=== PATIENT | male | born 1930 | race Hispanic/Latino ===

== ENCOUNTER 2017-10-13 08:44 | Observation (INO) | payer MEDICARE, OTHER ==
[2017-10-13 08:49] VITALS: BMI 25.8
[2017-10-13] MEDS ORDERED: Sodium Chloride 0.9% 1,000 ML IV STA (09:24)
[2017-10-13] MEDS ORDERED: Morphine 2 mg/ml ISec IVP STA (09:24)
[2017-10-13] MEDS ORDERED: Iohexol 240 (50 ml) ONE (09:29)
[2017-10-13 10:03] LABS: VENOUS BLOOD GAS BASE EXCESS -0.2 mmol/L (0.0-2.0); VENOUS BLOOD GAS PO2 35 mm/Hg (30-55); VENOUS BLOOD PH 7.33 (7.32-7.43)
[2017-10-13 10:06] LABS: BASO # 0.01 K/mm3 (0.0-2.0); BASO % 0.1 % (0.0-3.0); EOS % 0.2 % (1.5-5.0); GRAN # 11.01 (1.4-6.5); GRAN % 88.1 % (50.0-68.0); HEMOGLOBIN 13.8 g/dL (14.0-18.0); LYMPH # 0.7 (1.2-3.4); LYMPH % 5.4 % (22.0-35.0); MEAN CELL VOLUME 89.8 fl (80.0-105.0); MEAN CORPUSCULAR HEMOGLOBIN 30.6 pg (25.0-35.0); MEAN CORPUSCULAR HGB CONC 34.1 g/dl (31.0-37.0); MEAN PLATELET VOLUME 11.4 fl (7.0-11.0); MONO # 0.8 (0.1-0.6); MONO % 6.2 % (1.0-6.0); PH,URINE 6.5 (4.7-8.0); RBC 4.51 10^6/uL (3.5-6.1); RED CELL DISTRIBUTION WIDTH 14.3 % (11.5-14.5); URINE BILIRUBIN NEGATIVE (NEGATIVE); URINE BLOOD NEGATIVE (NEGATIVE); URINE GLUCOSE (UA) NEGATIVE (NEGATIVE); URINE LEUKOCYTE ESTERASE NEGATIVE Leu/uL (NEGATIVE); URINE PROTEIN NEGATIVE mg/dL (<30 mg/dL); URINE UROBILINOGEN 0.2 E.U./dL (<1 E.U./dL); WHITE BLOOD COUNT 12.5 10^3/ul (4.5-11.0)
[2017-10-13 10:07] LABS: URINE APPEARANCE CLEAR (CLEAR); URINE COLOR YELLOW (YELLOW)
--- NOTE | 2017-10-13 10:12 | ED PDOC ---
Arrival/HPI - General Chief Complaint: Abdominal Pain Time Seen by Provider: 10/13/17 09:22 Historian: Patient, Spouse - History of Present Illness Narrative History of Present Illness (Text): 10/13/17 10:09 87 yo male come in accompanied by for evaluation of gradual onset of RLQ pain since today AM. Pt sts, "woke up this AM with some chills, nauseous, dry heaves, went to bathroom and after that fell severe RLQ pain". Pt reports, since then, pain is constant, localized over RLQ, non-radiating, 09/28. Pt denies fever, recent travel or known sick contact. dizziness, CP, SOB, dyspnea, palpitation, denies vomiting, hematemesis, diarrhea, melena, denies hx of constipation, UTI sx. At the time of evaluation, appears comfortable, not in any apparent distress. Past Medical History - Provider Review Nursing Documentation Reviewed: Yes - Travel History Have you recently traveled outside [place] w/in the past 3 mons?: No - Infectious Disease Hx of Infectious Diseases: None - Tetanus Immunization Tetanus Immunization: Unknown - Cardiac Hx Cardiac Disorders: Yes (triple bypass 1991) Hx Hypertension: Yes - Pulmonary Hx Respiratory Disorders: No - Neurological Hx Neurological Disorder: No - HEENT Hx HEENT Disorder: No Hx Glaucoma: Yes - Renal Hx Renal Disorder: No - Endocrine/Metabolic Hx Endocrine Disorders: No - Hematological/Oncological Hx Cancer: Yes (bladder ca over 10 yrs ago) - Integumentary Hx Dermatological Disorder: No - Musculoskeletal/Rheumatological Hx Arthritis: Yes Hx Falls: No - Gastrointestinal Hx Gastrointestinal Disorders: Yes (right groin hernia) Hx Colitis: Yes Hx Gastrointestinal Ulcer: Yes - Genitourinary/Gynecological Hx Bladder Cancer: Yes - Psychiatric Hx Psychophysiologic Disorder: No Hx Substance Use: No - Surgical History Hx Cardiac Catheterization: Yes Hx Cholecystectomy: Yes Hx Coronary Stent: Yes (x4 2003) Hx Open Heart Surgery: Yes (triple bypass) Other/Comment: BLADDER - Anesthesia Hx Anesthesia: Yes Hx Anesthesia Reactions: No Hx Malignant Hyperthermia: No - Suicidal Assessment Feels Threatened In Home Enviroment: No Family/Social History - Physician Review Nursing Documentation Reviewed: Yes Family/Social History: No Known Family HX Smoking Status: Never Smoked Hx Alcohol Use: Yes Hx Substance Use: No Hx Substance Use Treatment: No Allergies/Home Meds Allergies/Adverse Reactions: Allergies iv contrast Allergy (Uncoded 10/13/17 09:16) RASH tyelenol Allergy (Uncoded 10/13/17 09:16) RASH Home Medications: Home Meds Medication Instructions Recorded Confirmed Atorvastatin [Lipitor] 40 mg PO DAILY 01/12/12 10/13/17 Clopidogrel [Plavix] 75 mg PO DAILY 01/12/12 10/13/17 Ramipril [Altace] 10 mg PO BID 01/12/12 10/13/17 Timolol 0.5% Ophth [Timoptic 0.5% 2 drop OP DAILY 01/12/12 10/13/17 Ophth Soln] Aspirin [Aspirin EC] 325 mg PO DAILY 10/13/17 10/13/17 [id number] CD [Cardizem CD] 300 mg PO DAILY 10/13/17 10/13/17 Review of Systems - Review of Systems Constitutional: Normal, Fevers Eyes: Normal ENT: Normal Respiratory: Normal. absent: SOB, Cough, Sputum Cardiovascular: Normal Gastrointestinal: Abdominal Pain, Nausea. absent: Constipation, Diarrhea, Hematochezia, Hematemesis, Food Intolerance Genitourinary Male: Normal Musculoskeletal: Normal Skin: Normal. absent: Rash Neurological: Normal Endocrine: Normal Hemo/Lymphatic: Normal Psychiatric: Normal Physical Exam Vital Signs Temp Pulse Resp BP Pulse Ox 10/13/17 11:00 70 17 149/70 98 10/13/17 08:57 98.0 F 78 17 154/69 H 98 Temperature: Afebrile Blood Pressure: Hypertensive Pulse: Regular Respiratory Rate: Normal Appearance: Positive for: Well-Appearing, Non-Toxic, Comfortable Pain Distress: Mild Mental Status: Positive for: Alert and Oriented X 3 - Systems Exam Head: Present: Normocephalic Conjunctiva: Present: Normal Mouth: Present: Moist Mucous Membranes, Normal Lips. No: Drooling Pharnyx: No: ERYTHEMA Neck: Present: Trachea Midline. No: JVD, Bruit Respiratory/Chest: Present: Clear to Auscultation, Good Air Exchange. No: Respiratory Distress, Accessory Muscle Use Cardiovascular: Present: Regular Rate and Rhythm, Normal S1, S2. No: Murmurs Abdomen: Present: Tenderness (mod RLQ). No: Distention, Peritoneal Signs, Rebound, Guarding Upper Extremity: Present: Normal ROM Lower Extremity: Present: Normal ROM. No: Edema, CALF TENDERNESS, Swelling, Deformity Neurological: Present: GCS=15, Speech Normal Skin: Present: Warm, Dry, Normal Color. No: Rashes Psychiatric: Present: Alert, Oriented x 3 Medical Decision Making ED Course and Treatment: 10/13/17 11:50 Ptw as OBS in ED for 3 hours and remained stable. On re-evaluation, pt remained significantly unchanged. Afebriler, hemodynamicalys table. non-toxic, tolerate Po well in ED. neck: Supple Lungs: C TA B/L, BS equal B/L. CVS: (+)S1S2, reg. Abd: mild RLQ tenderness, (-) guarding, (-) rebound. Blood work review, mild leukocytosis with left shift noted. Lactic acid- negative, no evidence of sepsis. Chemistry- baseline, no acute abnormalities. UA- normal study. CT abd/pelvis review and c/w ascending colitis case discussed with ( pts GI), last colonoscopy 5-6 yrs ago, recommend admission r/o ischemic cause of colitis. case discussed with pt's PMD , admission to recommend. was notified about admission. results review and discussed with pt, agrees with plan. - Lab Interpretations Lab Results: 10/13/17 09:30 10/13/17 09:30 Lab Results 10/13/17 09:30: Sodium 139, Chloride 102, Potassium 4.4, Carbon Dioxide 25, Anion Gap 16, BUN 22 H, Creatinine 1.4, Est GFR ( Amer) 58, Est GFR (Non- Af Amer) 48, Random Glucose 134 H, Calcium 9.2, Total Bilirubin 1.0, AST 41, ALT 51, Alkaline Phosphatase 139 H, Troponin I < 0.01, Total Protein 8.1, Albumin 4.4, Globulin 3.7, Albumin/Globulin Ratio 1.2 10/13/17 09:30: pO2 35, VBG pH 7.33, VBG pCO2 50.0, VBG HCO3 26.4, VBG Total CO2 27.9, VBG O2 Sat (Calc) 68.9 H, VBG Base Excess -0.2 L, VBG Potassium 4.4, Sodium 136.0, Chloride 103.0, Glucose 140 H, Lactate 1.1, FiO2 21.0, Venous Blood Potassium 4.4 10/13/17 09:30: Urine Color Yellow, Urine Appearance Clear, Urine pH 6.5, Ur Specific [place] 1.010, Urine Protein Negative, Urine Glucose (UA) Negative, Urine Ketones Negative, Urine Blood Negative, Urine Nitrate Negative, Urine Bilirubin Negative, Urine Urobilinogen 0.2, Ur Leukocyte Esterase Negative 10/13/17 09:30: PT 11.1, INR 0.97, APTT 27.6 10/13/17 09:30: WBC 12.5 H D, RBC 4.51, Hgb 13.8 L, Hct 40.5 L, MCV 89.8, MCH 30.6, MCHC 34.1, RDW 14.3, Plt Count 152, MPV 11.4 H, Gran % 88.1 H, Lymph % ( Auto) 5.4 L, [place] % (Auto) 6.2 H, Eos % (Auto) 0.2 L, Baso % (Auto) 0.1, Gran # 11.01 H, Lymph # (Auto) 0.7 L, [place] # (Auto) 0.8 H, Eos # (Auto) 0.0, Baso # ( Auto) 0.01 - RAD Interpretation Radiology Orders: 10/13/17 09:22 CHEST PORTABLE [RAD] Stat 10/13/17 09:24 ABD & PELVIS PO CONTRAST ONLY [CT] Stat CXR: cardiomegaly, no new acute findings compare to previous study. Creator : Frank Stearns MD Dictator : Frank Stearns MD Pancake Professional : Handy Worker : Frank Stearns MD Approver2 : Report Date : 10/13/2017 11:47:35 My Comment : This report is currently processing and HAS NOT BEEN OFFICIALLY SIGNED BY THE PHYSICIAN - ESTIMATED TIME OF APPROVAL IS 10/13/2017 11:53. Date of service: 10/13/2017 PROCEDURE: CT Abdomen and Pelvis with contrast HISTORY: RLQ pain COMPARISON: 07/05/2014 TECHNIQUE: Contrast dose: Oral contrast only. Radiation dose: Total exam DLP = 799.58 mGy-cm. This CT exam was performed using one or more of the following dose reduction techniques: Automated exposure control, adjustment of the mA and/or kV according to patient size, and/or use of iterative reconstruction technique. FINDINGS: LOWER THORAX: Unremarkable. LIVER: Unremarkable. No gross lesion or ductal dilatation. GALLBLADDER AND BILE DUCTS: Status post cholecystectomy. No abnormality is seen in the gallbladder fossa. PANCREAS: Unremarkable. No gross lesion or ductal dilatation. SPLEEN: Unremarkable. ADRENALS: Unremarkable. No mass. KIDNEYS AND URETERS: Right kidney: Unremarkable. No hydronephrosis. No solid mass. Left kidney: Atrophic with dilated renal pelvis and left ureter likely chronic. VASCULATURE: Unremarkable. No aortic aneurysm. BOWEL: Markedly thickened wall of the cecum and adjacent ascending colon. The splenic flexure is spared. No additional inflammatory changes in the colon. Although there are scattered diverticulae in the affected right arias colon this more likely represents colitis. Similar findings were seen in the affected area of the cecum and ascending colon on the prior study. Additional areas of the right hemicolon were also involved There is extensive diverticular disease. APPENDIX: Not visualized. PERITONEUM: Unremarkable. No free fluid. No free air. LYMPH NODES: Unremarkable. No enlarged lymph nodes. BLADDER: Unremarkable. REPRODUCTIVE: Unremarkable. BONES: No acute fracture. OTHER FINDINGS: None. IMPRESSION: Thickening of the wall of the ascending colon including cecum. The affected segment is approximately 12 cm. The findings are likely infectious/ inflammatory. Underlying neoplasm is not excluded but remains unlikely based on the overall appearance and recurrent nature of these findings. Additional benign and/or incidental findings described above. - EKG Interpretation EKG Interpretation (Text): 10/13/17 10:09 SR@70/min, LAD, 1st degrees AVB, LVH with QRS widening, no acute ST-T changes. Interpreted by ED Physician: No Comparison: Similar to previous EKG (07/05/2014) - Medication Orders Current Medication Orders: Discontinued Medications Ciprofloxacin (Cipro) 500 mg PO ONCE STA PRN Reason: Protocol Stop: 10/13/17 11:56 Sodium Chloride (Sodium Chloride 0.9%) 1,000 mls @ 999 mls/hr IV .Q1H1M STA Stop: 10/13/17 10:24 Last Admin: 10/13/17 09:50 Dose: 999 mls/hr eMAR Start Stop Document 10/13/17 09:50 SF (Rec: 10/13/17 09:51 SF [id number]) Intravenous Solution Start Date 10/13/17 Start Time 09:50 End Date 10/13/17 End time 10:51 Total Infusion Time 61 Metronidazole (Flagyl) 500 mg PO STAT STA PRN Reason: Protocol Stop: 10/13/17 11:56 Morphine Sulfate (Morphine) 2 mg IVP STAT STA Stop: 10/13/17 09:25 Last Admin: 10/13/17 09:51 Dose: 2 mg MAR Pain Assessment Document 10/13/17 09:51 SF (Rec: 10/13/17 09:51 SF [id number]) Pain Reassessment Is this a pain reassessment? Yes Sleep Is patient sleeping during reassessment? No Presence of Pain Presence of Pain Yes Pain Scale Used Pain Scale Used Numeric IVP Administration Document 10/13/17 09:51 SF (Rec: 10/13/17 09:51 SF [id number]) Charges for Administration # of IVP Administrations 1 Ondansetron HCl (Zofran Inj) 4 mg IVP STAT STA Stop: 10/13/17 09:25 Last Admin: 10/13/17 09:51 Dose: 4 mg IVP Administration Document 10/13/17 09:51 SF (Rec: 10/13/17 09:51 SF [id number]) Charges for Administration # of IVP Administrations 1 Disposition/Present on Arrival - Present on Arrival Any Indicators Present on Arrival: No History of DVT/PE: No History of Uncontrolled Diabetes: No Urinary Catheter: No History of Decub. Ulcer: No History Surgical Site Infection Following: None - Disposition Have Diagnosis and Disposition been Completed?: Yes Diagnosis: Colitis Disposition: HOSPITALIZED Disposition Time: 11:58 Patient Plan: Admission Patient Problems: Current Active Problems Problem Status Onset Colitis Acute Condition: STABLE Referrals: Mich Vergara MD [Family Provider] - Follow up with primary Chapincito Hayes MD [Medical Doctor] - Follow up with primary Forms: [employer] (Turkmen)
[2017-10-13 10:13] LABS: ALB/GLOB RATIO 1.2 (1.1-1.8); ALBUMIN 4.4 g/dL (3.0-4.8); ALT/SGPT 51 U/L (7-56); AST/SGOT 41 U/L (17-59); BLOOD UREA NITROGEN 22 mg/dL (7-21); CALCIUM 9.2 mg/dL (8.4-10.5); GFR AFRICAN-AMERICAN 58; GFR NON-AFRICAN AMERICAN 48; INR 0.97 (0.93-1.08); PARTIAL THROMBOPLASTIN TIME 27.6 Seconds (25.1-36.5); PROTHROMBIN TIME 11.1 SECONDS (9.4-12.5)
[2017-10-13 10:24] LABS: TROPONIN I < 0.01 ng/mL
--- NOTE | 2017-10-13 10:53 | RAD ---
Date of service: 10/13/2017 HISTORY: Sepsis Patient COMPARISON: 06/11/2016 FINDINGS: LUNGS: No active pulmonary disease. PLEURA: No significant pleural effusion identified, no pneumothorax apparent. CARDIOVASCULAR: Normal. OSSEOUS STRUCTURES: Sternal wires VISUALIZED UPPER ABDOMEN: Normal. OTHER FINDINGS: None. IMPRESSION: No active disease.
--- NOTE | 2017-10-13 11:49 | CT ---
Date of service: 10/13/2017 PROCEDURE: CT Abdomen and Pelvis with contrast HISTORY: RLQ pain COMPARISON: 07/05/2014 TECHNIQUE: Contrast dose: Oral contrast only. Radiation dose: Total exam DLP = 799.58 mGy-cm. This CT exam was performed using one or more of the following dose reduction techniques: Automated exposure control, adjustment of the mA and/or kV according to patient size, and/or use of iterative reconstruction technique. FINDINGS: LOWER THORAX: Unremarkable. LIVER: Unremarkable. No gross lesion or ductal dilatation. GALLBLADDER AND BILE DUCTS: Status post cholecystectomy. No abnormality is seen in the gallbladder fossa. PANCREAS: Unremarkable. No gross lesion or ductal dilatation. SPLEEN: Unremarkable. ADRENALS: Unremarkable. No mass. KIDNEYS AND URETERS: Right kidney: Unremarkable. No hydronephrosis. No solid mass. Left kidney: Atrophic with dilated renal pelvis and left ureter likely chronic. VASCULATURE: Unremarkable. No aortic aneurysm. BOWEL: Markedly thickened wall of the cecum and adjacent ascending colon. The splenic flexure is spared. No additional inflammatory changes in the colon. Although there are scattered diverticulae in the affected right arias colon this more likely represents colitis. Similar findings were seen in the affected area of the cecum and ascending colon on the prior study. Additional areas of the right hemicolon were also involved There is extensive diverticular disease. APPENDIX: Not visualized. PERITONEUM: Unremarkable. No free fluid. No free air. LYMPH NODES: Unremarkable. No enlarged lymph nodes. BLADDER: Unremarkable. REPRODUCTIVE: Unremarkable. BONES: No acute fracture. OTHER FINDINGS: None. IMPRESSION: Thickening of the wall of the ascending colon including cecum. Adjacent inflammatory changes affecting the fat identified. The affected segment is approximately 12 cm. The findings are likely infectious/ inflammatory. Underlying neoplasm is not excluded but remains unlikely based on the overall appearance and recurrent nature of these findings. Additional benign and/or incidental findings described above.
--- NOTE | 2017-10-13 14:20 | CP.PCM.HP ---
<Lopez Lisa - Last Filed: 10/13/17 14:41> History of Present Illness - History of Present Illness History of Present Illness: Medicine H&P for Dr. Garg's service - Angie Lisa PGY3 cc: abdominal pain HPI: Patient is a 84yo female with past medical history of CAD s/p CABG, hypertension, dyslipidemia, bladder cancer and diverticulosis that presents c/o abdominal pain. He reports that the pain started at 2:30am the day of presentation and described it as a sharp non-radiating right lower quadrant abdominal pain that is 8/10 in severity. The pain was associated with nausea and dry heaves but no vomiting. No apparent alleviating or exacerbating factors. He reported a similar instance in the past however at that time he had traveled to [place] and was thought to have developed an infectious colitis. On arrival to the ED, his WBC count was noted to be 12.[address] abd/pelvis revealed thickening of the wall of the ascending colon including cecum (see full report). He denied chest pain, palpitations, SOB, fever, chills, cough, recent illness, recent antibiotic use, sick contacts, travel, hematochezia, melena, vomiting, dysuria, frequency, urgency, focal weakness, numbness, tingling. 12point ROS as per above otherwise negative PMH: as stated above PSH: cholecystectomy, CABG, right groin hernia repair Allergies: IV contrast, tylenol (hives) Social Hx: Denies tobacco, alcohol and illicit drug use Family Hx: Mother: kidney disease at 69yo; Father: Dementia, passed at 90yo Present on Admission - Present on Admission Any Indicators Present on Admission: No Past Patient History - Infectious Disease Hx of Infectious Diseases: None - Tetanus Immunizations Tetanus Immunization: Unknown - Past Social History Smoking Status: Never Smoked - CARDIAC Hx Cardiac Disorders: Yes (triple bypass 1991) Hx Hypertension: Yes - PULMONARY Hx Respiratory Disorders: No - NEUROLOGICAL Hx Neurological Disorder: No - HEENT Hx HEENT Problems: No Hx Glaucoma: Yes - RENAL Hx Chronic Kidney Disease: No - ENDOCRINE/METABOLIC Hx Endocrine Disorders: No - HEMATOLOGICAL/ONCOLOGICAL Hx Cancer: Yes (bladder ca over 10 yrs ago) - INTEGUMENTARY Hx Dermatological Problems: No - MUSCULOSKELETAL/RHEUMATOLOGICAL Hx Arthritis: Yes Hx Falls: No - GASTROINTESTINAL Hx Gastrointestinal Disorders: Yes (right groin hernia) Hx Colitis: Yes - GENITOURINARY/GYNECOLOGICAL Hx Bladder Cancer: Yes - PSYCHIATRIC Hx Psychophysiologic Disorder: No Hx Substance Use: No - SURGICAL HISTORY Hx Cardiac Catheterization: Yes Hx Cholecystectomy: Yes Hx Coronary Stent: Yes (x4 2003) Hx Open Heart Surgery: Yes (triple bypass) Other/Comment: BLADDER - ANESTHESIA Hx Anesthesia: Yes Hx Anesthesia Reactions: No Hx Malignant Hyperthermia: No Meds Allergies/Adverse Reactions: Allergies Allergy/AdvReac Type Severity Reaction Status Date / Time iv contrast Allergy RASH Uncoded 10/13/17 18:18 tyelenol Allergy RASH Uncoded 10/13/17 18:18 Physical Exam - Constitutional Appears: No Acute Distress - Head Exam Head Exam: ATRAUMATIC, NORMAL INSPECTION, NORMOCEPHALIC - Eye Exam Eye Exam: EOMI, PERRL. absent: Conjunctival injection, Scleral icterus - ENT Exam ENT Exam: Mucous Membranes Moist - Neck Exam Neck exam: Positive for: Normal Inspection. Negative for: Lymphadenopathy, Tenderness, Thyromegaly - Respiratory Exam Respiratory Exam: Clear to Auscultation Bilateral. absent: Rales, Rhonchi, Wheezes - Cardiovascular Exam Cardiovascular Exam: RRR, +S1, +S2. absent: Clicks, Gallop, Rubs - GI/Abdominal Exam GI & Abdominal Exam: Distended, Rebound, Soft, Tenderness (RLQ abdominal tenderness). absent: Firm, Guarding, Rigid - Extremities Exam Extremities exam: Positive for: pedal edema (2+), pedal pulses present. Negative for: calf tenderness, joint swelling - Neurological Exam Neurological exam: Alert, CN II-XII Intact, Oriented x3 - Psychiatric Exam Psychiatric exam: Normal Affect, Normal Mood - Skin Skin Exam: Dry, Intact, Normal Color, Warm Results - Vital Signs Recent Vital Signs: Last Vital Signs Temp 98.0 F 10/13/17 08:57 Pulse 74 10/13/17 13:50 Resp 16 10/13/17 13:50 BP 148/75 10/13/17 13:50 Pulse Ox 99 10/13/17 13:50 - Labs Result Diagrams: 10/13/17 09:30 10/13/17 09:30 Assessment & Plan - Assessment and Plan (Free Text) Plan: 87yo male with history of CAD s/p CABG, dyslipidemia, hypertension, bladder cancer and diverticulosis that presents c/o RLQ abdominal pain associated with nausea and dry heaves 1. Ascending colitis 2. dyslipidemia 3. hypertension 4. diverticulosis 5. CAD 6. hx of bladder cancer -Patient is going to be admitted to med/surg for ascending colitis. He received cipro/flagyl antibiotics in the ED which will be continued. -Stool culture, fecal leukocytes, procalcitonin and stool for ova and parasites are pending -He is on lipitor for dyslipidemia, ASA/plavix for CAD, ramipril for hypertension -CT abdomen/pelvis was reviewed and revealed ascending colitis including the cecum with inflammatory changes in the adjacent fat (see full report) -GI has been consulted - Dr. Hayes -Urinalysis negative -NPO diet Patient seen and case discussed/reviewed with attending, Dr. Garg <Horace Garg - Last Filed: 10/14/17 21:39> Results - Vital Signs Recent Vital Signs: Last Vital Signs Temp 98.2 F 10/14/17 06:00 Pulse 81 10/14/17 06:00 Resp 18 10/14/17 06:00 BP 124/76 10/14/17 10:30 Pulse Ox 96 10/14/17 06:00 - Labs Result Diagrams: 10/14/17 06:30 10/14/17 06:30 Labs: Laboratory Results - last 24 hr 10/14/17 10/14/17 10/14/17 06:30 06:30 06:30 WBC 12.5 H RBC 4.04 Hgb 11.9 L Hct 35.8 L MCV 88.6 MCH 29.5 MCHC 33.2 RDW 14.6 H Plt Count 137 MPV 11.9 H Gran % 81.5 H Lymph % (Auto) 9.7 L [place] % (Auto) 8.5 H Eos % (Auto) 0.2 L Baso % (Auto) 0.1 Gran # 10.21 H Lymph # (Auto) 1.2 [place] # (Auto) 1.1 H Eos # (Auto) 0.0 Baso # (Auto) 0.01 Sodium 138 Potassium 3.9 Chloride 105 Carbon Dioxide 24 Anion Gap 13 BUN 17 Creatinine 1.2 Est GFR ( Amer) > 60 Est GFR (Non-Af Amer) 57 Random Glucose 109 Calcium 8.2 L Total Bilirubin 1.1 AST 36 ALT 43 Alkaline Phosphatase 85 Total Protein 6.2 Albumin 3.3 Globulin 3.0 Albumin/Globulin Ratio 1.1 Procalcitonin 2.55 H Stool Leukocytes, Qual 10/14/17 09:30 WBC RBC Hgb Hct MCV MCH MCHC RDW Plt Count MPV Gran % Lymph % (Auto) [place] % (Auto) Eos % (Auto) Baso % (Auto) Gran # Lymph # (Auto) [place] # (Auto) Eos # (Auto) Baso # (Auto) Sodium Potassium Chloride Carbon Dioxide Anion Gap BUN Creatinine Est GFR ( Amer) Est GFR (Non-Af Amer) Random Glucose Calcium Total Bilirubin AST ALT Alkaline Phosphatase Total Protein Albumin Globulin Albumin/Globulin Ratio Procalcitonin Stool Leukocytes, Qual Negative
--- NOTE | 2017-10-13 17:03 | CP.PCM.CON ---
<Satnam Short - Last Filed: 10/13/17 16:58> History of Present Illness - History of Present Illness History of Present Illness: GI Consult Note for Dr. Abigail Short, PGY-3 IM This is an 84 yo F with PMH of CAD s/p CABG, hypertension, dyslipidemia, bladder cancer, and diverticulosis that presented to [facility] with complaint of abdominal pain beginning today, early in the morning. Reports pain is similar to pain with prior collitis episode. GI consulted for possible collitis, known hx of prior R-sided collitis. Pt and at bedside denies recent travel, unusual or exotic food intake. Admits to nausea and sensation of needing to vomit, but no actual emesis. CT abd/pelvis obtained in ED concerning for thickening of the wall of the ascending colon including cecum and mild thickening of terminal colon/rectal area (pls see full report for additional details). Denies any diarrhea, melena, tarry black stools, loss of bowel control, chest pain, shortness of breath, fevers, chills, PO intolerance, bloating, or weakness. All other ROS in 12-system review negative. PMH: as stated above PSH: cholecystectomy, CABG, right groin hernia repair Soc Hx: Denies tobacco, alcohol and illicit drug use, Lives with Fam Hx: kidney disease (Mother), Dementia (Father) PMD: Dr. Vergara Review of Systems - Review of Systems All systems: reviewed and no additional remarkable complaints except (as per HPI ) Past Patient History - Infectious Disease Hx of Infectious Diseases: None - Tetanus Immunizations Tetanus Immunization: Unknown - Past Social History Smoking Status: Never Smoked - CARDIAC Hx Cardiac Disorders: Yes (triple bypass 1991) Hx Hypertension: Yes - PULMONARY Hx Respiratory Disorders: No - NEUROLOGICAL Hx Neurological Disorder: No - HEENT Hx HEENT Problems: No Hx Glaucoma: Yes - RENAL Hx Chronic Kidney Disease: No - ENDOCRINE/METABOLIC Hx Endocrine Disorders: No - HEMATOLOGICAL/ONCOLOGICAL Hx Cancer: Yes (bladder ca over 10 yrs ago) - INTEGUMENTARY Hx Dermatological Problems: No - MUSCULOSKELETAL/RHEUMATOLOGICAL Hx Arthritis: Yes Hx Falls: No - GASTROINTESTINAL Hx Gastrointestinal Disorders: Yes (right groin hernia) Hx Colitis: Yes - GENITOURINARY/GYNECOLOGICAL Hx Bladder Cancer: Yes - PSYCHIATRIC Hx Psychophysiologic Disorder: No Hx Substance Use: No - SURGICAL HISTORY Hx Cardiac Catheterization: Yes Hx Cholecystectomy: Yes Hx Coronary Stent: Yes (x4 2003) Hx Open Heart Surgery: Yes (triple bypass) Other/Comment: BLADDER - ANESTHESIA Hx Anesthesia: Yes Hx Anesthesia Reactions: No Hx Malignant Hyperthermia: No Meds Allergies/Adverse Reactions: Allergies Allergy/AdvReac Type Severity Reaction Status Date / Time iv contrast Allergy RASH Uncoded 10/13/17 18:18 tyelenol Allergy RASH Uncoded 10/13/17 18:18 - Medications Medications: Current Medications Aspirin (Ecotrin) 325 mg PO DAILY [facility] Atorvastatin Calcium (Lipitor) 40 mg PO DAILY [facility] Clopidogrel Bisulfate (Plavix) 75 mg PO DAILY [facility] Diltiazem HCl (Cardizem Cd) 300 mg PO DAILY [facility] Metronidazole (Flagyl) 500 mg in 100 mls @ 100 mls/hr IVPB Q8 [facility] PRN Reason: Protocol Ceftriaxone Sodium (Rocephin 1 Gram Ivpb) 1 gm in 100 mls @ 100 mls/hr IVPB DAILY [facility] PRN Reason: Protocol Ramipril (Altace) 10 mg PO BID [facility] Timolol Maleate (Timoptic 0.5% Oph Soln) 1 drop OU BID [facility] Physical Exam - Constitutional Appears: Non-toxic, No Acute Distress - Head Exam Head Exam: ATRAUMATIC, NORMAL INSPECTION, NORMOCEPHALIC - Eye Exam Eye Exam: EOMI, Normal appearance. absent: Conjunctival injection, Scleral icterus Pupil Exam: absent: Fixed, Irregular - ENT Exam ENT Exam: Mucous Membranes Moist - Neck Exam Neck exam: Positive for: Normal Inspection. Negative for: Lymphadenopathy - Respiratory Exam Respiratory Exam: Clear to Auscultation Bilateral, NORMAL BREATHING PATTERN. absent: Accessory Muscle Use, Decreased Breath Sounds, Rales, Rhonchi, Wheezes, Respiratory Distress - Cardiovascular Exam Cardiovascular Exam: REGULAR RHYTHM, RRR, +S1, +S2. absent: Bradycardia, Tachycardia, Irregular Rhythm, JVD, +S4 - GI/Abdominal Exam GI & Abdominal Exam: Normal Bowel Sounds, Soft, Tenderness (mild-moderate tenderness to palpation at RUQ and RLQ region, no appreciable epigastric or Left -sided abdominal pain on palpation). absent: Diminished Bowel Sounds, Distended , Firm, Hyperactive Bowel Sounds, Hypoactive Bowel Sounds, Rigid - Extremities Exam Extremities exam: Positive for: normal inspection. Negative for: calf tenderness, joint swelling, pedal edema - Neurological Exam Neurological exam: Alert, Oriented x3 - Psychiatric Exam Psychiatric exam: Normal Affect, Normal Mood - Skin Skin Exam: Dry, Intact, Normal Color, Warm Results - Vital Signs Recent Vital Signs: Last Vital Signs Temp 98.0 F 10/13/17 08:57 Pulse 74 10/13/17 13:50 Resp 16 10/13/17 13:50 BP 148/75 10/13/17 13:50 Pulse Ox 99 10/13/17 13:50 - Labs Result Diagrams: 10/13/17 09:30 10/13/17 09:30 Assessment & Plan - Assessment and Plan (Free Text) Assessment: This is an 84 yo F with PMH of CAD s/p CABG, hypertension, dyslipidemia, bladder cancer, and diverticulosis that presented to [facility] with complaint of abdominal pain beginning today, early in the morning. Reports pain is similar to pain with prior collitis episode. GI consulted for possible collitis, known hx of prior R-sided collitis. Plan: Ddx: R-sided collitis vs enteritis vs diverticulitis vs appendicitis -CT abd/pelvis with PO contrast demonstrates diffuse diverticulosis, colonic wall thickening of ascending colon and mild thickening of terminal colon/rectal area, more likely collitis than diverticulitis as per radiologist -No fever, and CT findings more consistent with infectious vs inflammatory findings as per Radiologist, imaging reviewed by team as well -Agree with Flagyl, will add Rocephin IV -Can trial on CLD, if tolerates will advance diet as tolerable -Stool culture, fecal leukocytes, procalcitonin and stool for ova and parasites are pending as per primary team, will f/u -Given recurrence of right-sided collitis, will likely require Colonoscopy to assess the right colon, but need to wait for resolution of acute inflammatory process, may be obtained as outpatient after resolution of current episode. Seen, discussed, and reviewed with attending, Dr Hayes <Chapincito Hayes V - Last Filed: 10/13/17 23:31> Meds - Medications Medications: Current Medications Aspirin (Ecotrin) 325 mg PO DAILY [facility] Atorvastatin Calcium (Lipitor) 40 mg PO DAILY [facility] Clopidogrel Bisulfate (Plavix) 75 mg PO DAILY [facility] Diltiazem HCl (Cardizem Cd) 300 mg PO DAILY [facility] Metronidazole (Flagyl) 500 mg in 100 mls @ 100 mls/hr IVPB Q8 [facility] PRN Reason: Protocol Last Admin: 10/13/17 22:40 Dose: 100 mls/hr Ceftriaxone Sodium (Rocephin 1 Gram Ivpb) 1 gm in 100 mls @ 100 mls/hr IVPB DAILY [facility] PRN Reason: Protocol Last Admin: 10/13/17 17:07 Dose: 100 mls/hr Ramipril (Altace) 10 mg PO BID [facility] Last Admin: 10/13/17 17:45 Dose: 10 mg Timolol Maleate (Timoptic 0.5% [facility]) 1 drop OU BID [facility] Last Admin: 10/13/17 18:20 Dose: 1 drop Results - Vital Signs Recent Vital Signs: Last Vital Signs Temp 98.5 F 10/13/17 21:58 Pulse 75 10/13/17 21:58 Resp 20 10/13/17 21:58 BP 127/57 L 10/13/17 21:58 Pulse Ox 95 10/13/17 21:58 - Labs Result Diagrams: 10/13/17 09:30 10/13/17 09:30 Attending/Attestation - Attestation I have personally seen and examined this patient.: Yes I have fully participated in the care of the patient.: Yes I have reviewed all pertinent clinical information: Yes Notes (Text): This is an addendum to GI consult report dictated by the Founder.The patient was seen and examined earlier. Medical records, lab studies, imagings were reviewed. Last 24 hours events reviewed. Agreed with the above treatment plan as outlined in Founder 's notes the with the addition of the following patient's was at bedside at the time of examination CT scan was reviewed On examination patient had significant tenderness in r side of abdomen Colitis ischemic versus infectious versus inflammatory Start clear liquid diet Continue antibiotics Stool studies for culture Abdominal Doppler to evaluate celiac, AMA, sma 10/13/17 23:27
[2017-10-13] MEDS: cefTRIAXone 1 gm 1 GM/100 ML BAG IVPB SCH (17:07)
--- NOTE | 2017-10-13 18:35 | CARD ---
APPROVED REPORT Date of service: 10/13/2017 EKG Measurement Heart [id number] <Conclusion> Sinus rhythm with 1st degree AV block Left axis deviation Left ventricular hypertrophy with QRS widening Cannot rule out Septal infarct, age undetermined Abnormal ECG
[2017-10-13] MEDS ORDERED: Pneumococcal 23-Valent Vaccine IM ONE (18:43)
[2017-10-13] MEDS ORDERED: Ciprofloxacin 400mg/200ml D5W 400 MG/200 ML BAG IVPB SCH (22:00)
[2017-10-13] MEDS: metroNIDAZOLE IV 500 mg/100 ml 500 MG/100 ML BAG IVPB SCH (22:40)
[2017-10-14] MEDS: metroNIDAZOLE IV 500 mg/100 ml 500 MG/100 ML BAG IVPB SCH (06:00)
[2017-10-14 07:06] LABS: BASO # 0.01 K/mm3 (0.0-2.0); BASO % 0.1 % (0.0-3.0); EOS % 0.2 % (1.5-5.0); GRAN # 10.21 (1.4-6.5); GRAN % 81.5 % (50.0-68.0); HEMOGLOBIN 11.9 g/dL (14.0-18.0); LYMPH # 1.2 (1.2-3.4); LYMPH % 9.7 % (22.0-35.0); MEAN CELL VOLUME 88.6 fl (80.0-105.0); MEAN CORPUSCULAR HEMOGLOBIN 29.5 pg (25.0-35.0); MEAN CORPUSCULAR HGB CONC 33.2 g/dl (31.0-37.0); MEAN PLATELET VOLUME 11.9 fl (7.0-11.0); MONO # 1.1 (0.1-0.6); MONO % 8.5 % (1.0-6.0); RBC 4.04 10^6/uL (3.5-6.1); RED CELL DISTRIBUTION WIDTH 14.6 % (11.5-14.5); WHITE BLOOD COUNT 12.5 10^3/ul (4.5-11.0)
[2017-10-14 07:33] LABS: ALB/GLOB RATIO 1.1 (1.1-1.8); ALBUMIN 3.3 g/dL (3.0-4.8); ALT/SGPT 43 U/L (7-56); AST/SGOT 36 U/L (17-59); BLOOD UREA NITROGEN 17 mg/dL (7-21); CALCIUM 8.2 mg/dL (8.4-10.5); GFR AFRICAN-AMERICAN > 60; GFR NON-AFRICAN AMERICAN 57
[2017-10-14 07:34] VITALS: PULSE 81; RESP 18; TEMP 98.2; O2SAT 96
--- NOTE | 2017-10-14 08:03 | CP.PCM.DIS ---
<Lopez Lisa - Last Filed: 10/14/17 09:42> Provider - Provider Date of Admission: 10/13/17 11:50 Attending physician: Horace Garg MD Primary care physician: Mich Vergara MD Consults: GI Time Spent in preparation of Discharge (in minutes): 35 Hospital Course - Lab Results Lab Results: Most Recent Lab Values WBC 12.5 10^3/ul (4.5-11.0) H 10/14/17 06:30 RBC 4.04 10^6/uL (3.5-6.1) 10/14/17 06:30 Hgb 11.9 g/dL (14.0-18.0) L 10/14/17 06:30 Hct 35.8 % (42.0-52.0) L 10/14/17 06:30 MCV 88.6 fl (80.0-105.0) 10/14/17 06:30 MCH 29.5 pg (25.0-35.0) 10/14/17 06:30 MCHC 33.2 g/dl (31.0-37.0) 10/14/17 06:30 RDW 14.6 % (11.5-14.5) H 10/14/17 06:30 Plt Count 137 10^3/uL (120.0-450.0) 10/14/17 06:30 MPV 11.9 fl (7.0-11.0) H 10/14/17 06:30 Gran % 81.5 % (50.0-68.0) H 10/14/17 06:30 Lymph % (Auto) 9.7 % (22.0-35.0) L 10/14/17 06:30 [place] % (Auto) 8.5 % (1.0-6.0) H 10/14/17 06:30 Eos % (Auto) 0.2 % (1.5-5.0) L 10/14/17 06:30 Baso % (Auto) 0.1 % (0.0-3.0) 10/14/17 06:30 Gran # 10.21 (1.4-6.5) H 10/14/17 06:30 Lymph # (Auto) 1.2 (1.2-3.4) 10/14/17 06:30 [place] # (Auto) 1.1 (0.1-0.6) H 10/14/17 06:30 Eos # (Auto) 0.0 (0.0-0.7) 10/14/17 06:30 Baso # (Auto) 0.01 K/mm3 (0.0-2.0) 10/14/17 06:30 PT 11.1 SECONDS (9.4-12.5) 10/13/17 09:30 INR 0.97 (0.93-1.08) 10/13/17 09:30 APTT 27.6 Seconds (25.1-36.5) 10/13/17 09:30 pO2 35 mm/Hg (30-55) 10/13/17 09:30 VBG pH 7.33 (7.32-7.43) 10/13/17 09:30 VBG pCO2 50.0 (40-60) 10/13/17 09:30 VBG HCO3 26.4 mmol/l (21-28) 10/13/17 09:30 VBG Total CO2 27.9 mmol.L (22-28) 10/13/17 09:30 VBG O2 Sat (Calc) 68.9 % (40-65) H 10/13/17 09:30 VBG Base Excess -0.2 mmol/L (0.0-2.0) L 10/13/17 09:30 VBG Potassium 4.4 mmol/L (3.6-5.2) 10/13/17 09:30 Sodium 136.0 mmol/L (132-148) 10/13/17 09:30 Chloride 103.0 mmol/L (98-107) 10/13/17 09:30 Glucose 140 mg/dl (75-110) H 10/13/17 09:30 Lactate 1.1 mmol/L (0.7-2.1) 10/13/17 09:30 FiO2 21.0 % 10/13/17 09:30 Sodium 138 mmol/L (132-148) 10/14/17 06:30 Potassium 3.9 mmol/L (3.6-5.0) 10/14/17 06:30 Chloride 105 mmol/L (98-107) 10/14/17 06:30 Carbon Dioxide 24 mmol/L (21-33) 10/14/17 06:30 Anion Gap 13 (10-20) 10/14/17 06:30 BUN 17 mg/dL (7-21) 10/14/17 06:30 Creatinine 1.2 mg/dl (0.8-1.5) 10/14/17 06:30 Est GFR ( Amer) > 60 10/14/17 06:30 Est GFR (Non-Af Amer) 57 10/14/17 06:30 Random Glucose 109 mg/dL (70-110) 10/14/17 06:30 Calcium 8.2 mg/dL (8.4-10.5) L 10/14/17 06:30 Total Bilirubin 1.1 mg/dL (0.2-1.3) 10/14/17 06:30 AST 36 U/L (17-59) 10/14/17 06:30 ALT 43 U/L (7-56) 10/14/17 06:30 Alkaline Phosphatase 85 U/L (38-126) 10/14/17 06:30 Troponin I < 0.01 ng/mL 10/13/17 09:30 Total Protein 6.2 g/dL (5.8-8.3) 10/14/17 06:30 Albumin 3.3 g/dL (3.0-4.8) 10/14/17 06:30 Globulin 3.0 gm/dL 10/14/17 06:30 Albumin/Globulin Ratio 1.1 (1.1-1.8) 10/14/17 06:30 Venous Blood Potassium 4.4 mmol/L (3.6-5.2) 10/13/17 09:30 Urine Color Yellow (YELLOW) 10/13/17 09:30 Urine Appearance Clear (CLEAR) 10/13/17 09:30 Urine pH 6.5 (4.7-8.0) 10/13/17 09:30 Ur Specific [place] 1.010 (1.005-1.035) 10/13/17 09:30 Urine Protein Negative mg/dL (<30 mg/dL) 10/13/17 09:30 Urine Glucose (UA) Negative mg/dL (NEGATIVE) 10/13/17 09:30 Urine Ketones Negative mg/dL (NEGATIVE) 10/13/17 09:30 Urine Blood Negative (NEGATIVE) 10/13/17 09:30 Urine Nitrate Negative (NEGATIVE) 10/13/17 09:30 Urine Bilirubin Negative (NEGATIVE) 10/13/17 09:30 Urine Urobilinogen 0.2 E.U./dL (<1 E.U./dL) 10/13/17 09:30 Ur Leukocyte Esterase Negative Stevie/uL (NEGATIVE) 10/13/17 09:30 - Hospital Course Hospital Course: Patient is a 84yo female with past medical history of CAD s/p CABG, hypertension , dyslipidemia, bladder cancer and diverticulosis that presented to [facility] [place] with c/ o abdominal pain. He reported that the pain started at 2:30am the day of presentation and described it as a sharp non-radiating right lower quadrant abdominal pain that was 8/10 in severity. The pain was associated with nausea and dry heaves but no vomiting. No apparent alleviating or exacerbating factors. He reported a similar instance in the past however at that time he had traveled to [place] and was thought to have developed an infectious colitis. On arrival to the ED, his WBC count was noted to be 12.[address] abd/pelvis revealed thickening of the wall of the ascending colon including cecum (see full report). He was given ciprofloxacin/flagyl in the ED for presumed infectious colitis. GI was consulted for further evaluation. He was started on empiric antibiotic treatment with rocephin/flagyl and clear liquid diet which was tolerated without issue. He reported resolution of his abdominal pain and subsequently discharged on oral antibiotics with instructions to follow up with his PMD and gastroenterology within 1-2 weeks of discharge. Discharge Exam - Head Exam Head Exam: ATRAUMATIC, NORMAL INSPECTION, NORMOCEPHALIC - Eye Exam Eye Exam: EOMI. absent: Conjunctival injection, Scleral icterus Pupil Exam: PERRL - Respiratory Exam Respiratory Exam: Clear to PA & Lateral. absent: Rales, Rhonchi, Wheezes - Cardiovascular Exam Cardiovascular Exam: RRR, +S1, +S2. absent: Clicks, Gallop, JVD, Rubs - GI/Abdominal Exam GI & Abdominal Exam: Soft, Tenderness (mild tenderness in RLQ). absent: Distended, Firm, Guarding, Rebound, Rigid - Extremities Exam Extremities exam: pedal edema - Neurological Exam Neurological exam: Alert, CN II-XII Intact, Oriented x3 - Psychiatric Exam Psychiatric exam: Normal Affect, Normal Mood - Skin Skin Exam: Dry, Intact, Normal Color, Warm Discharge Plan - Discharge Medications Prescriptions: Amoxicillin/Clavulanate [Augmentin 500 MG-125 MG] 1 tab PO BID #14 tab - Follow Up Plan Condition: STABLE Disposition: HOME/ ROUTINE Instructions: Preventing Falls in the Older Adult, Ulcerative Colitis (DC), Preventing Falls, Dehydration (DC), Dehydration (GEN), Acute Abdominal Pain (DC) , Acute Abdominal Pain (GEN) Additional Instructions: 1. Follow up with your PMD within 1-2 weeks of discharge. 2. Follow up with your slip cover estimator within 1-2 weeks of discharge. 3. 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 4. Return to the emergency room should your condition worsen. Referrals: Mich Vergara MD [Primary Care Provider] - <Horace Garg - Last Filed: 10/14/17 23:03> Provider - Provider Date of Admission: 10/13/17 11:50 Attending physician: Horace Garg MD Primary care physician: Mich Vergara MD Hospital Course - Lab Results Lab Results: Micro Results 10/14/17 09:20 Stool Ova and Parasite Concentrate Exam - Final 10/14/17 09:22 Stool C. difficile Antigen & Toxin A,B (M - Final Most Recent Lab Values WBC 12.5 10^3/ul (4.5-11.0) H 10/14/17 06:30 RBC 4.04 10^6/uL (3.5-6.1) 10/14/17 06:30 Hgb 11.9 g/dL (14.0-18.0) L 10/14/17 06:30 Hct 35.8 % (42.0-52.0) L 10/14/17 06:30 MCV 88.6 fl (80.0-105.0) 10/14/17 06:30 MCH 29.5 pg (25.0-35.0) 10/14/17 06:30 MCHC 33.2 g/dl (31.0-37.0) 10/14/17 06:30 RDW 14.6 % (11.5-14.5) H 10/14/17 06:30 Plt Count 137 10^3/uL (120.0-450.0) 10/14/17 06:30 MPV 11.9 fl (7.0-11.0) H 10/14/17 06:30 Gran % 81.5 % (50.0-68.0) H 10/14/17 06:30 Lymph % (Auto) 9.7 % (22.0-35.0) L 10/14/17 06:30 [place] % (Auto) 8.5 % (1.0-6.0) H 10/14/17 06:30 Eos % (Auto) 0.2 % (1.5-5.0) L 10/14/17 06:30 Baso % (Auto) 0.1 % (0.0-3.0) 10/14/17 06:30 Gran # 10.21 (1.4-6.5) H 10/14/17 06:30 Lymph # (Auto) 1.2 (1.2-3.4) 10/14/17 06:30 [place] # (Auto) 1.1 (0.1-0.6) H 10/14/17 06:30 Eos # (Auto) 0.0 (0.0-0.7) 10/14/17 06:30 Baso # (Auto) 0.01 K/mm3 (0.0-2.0) 10/14/17 06:30 PT 11.1 SECONDS (9.4-12.5) 10/13/17 09:30 INR 0.97 (0.93-1.08) 10/13/17 09:30 APTT 27.6 Seconds (25.1-36.5) 10/13/17 09:30 pO2 35 mm/Hg (30-55) 10/13/17 09:30 VBG pH 7.33 (7.32-7.43) 10/13/17 09:30 VBG pCO2 50.0 (40-60) 10/13/17 09:30 VBG HCO3 26.4 mmol/l (21-28) 10/13/17 09:30 VBG Total CO2 27.9 mmol.L (22-28) 10/13/17 09:30 VBG O2 Sat (Calc) 68.9 % (40-65) H 10/13/17 09:30 VBG Base Excess -0.2 mmol/L (0.0-2.0) L 10/13/17 09:30 VBG Potassium 4.4 mmol/L (3.6-5.2) 10/13/17 09:30 Sodium 136.0 mmol/L (132-148) 10/13/17 09:30 Chloride 103.0 mmol/L (98-107) 10/13/17 09:30 Glucose 140 mg/dl (75-110) H 10/13/17 09:30 Lactate 1.1 mmol/L (0.7-2.1) 10/13/17 09:30 FiO2 21.0 % 10/13/17 09:30 Sodium 138 mmol/L (132-148) 10/14/17 06:30 Potassium 3.9 mmol/L (3.6-5.0) 10/14/17 06:30 Chloride 105 mmol/L (98-107) 10/14/17 06:30 Carbon Dioxide 24 mmol/L (21-33) 10/14/17 06:30 Anion Gap 13 (10-20) 10/14/17 06:30 BUN 17 mg/dL (7-21) 10/14/17 06:30 Creatinine 1.2 mg/dl (0.8-1.5) 10/14/17 06:30 Est GFR ( Amer) > 60 10/14/17 06:30 Est GFR (Non-Af Amer) 57 10/14/17 06:30 Random Glucose 109 mg/dL (70-110) 10/14/17 06:30 Calcium 8.2 mg/dL (8.4-10.5) L 10/14/17 06:30 Total Bilirubin 1.1 mg/dL (0.2-1.3) 10/14/17 06:30 AST 36 U/L (17-59) 10/14/17 06:30 ALT 43 U/L (7-56) 10/14/17 06:30 Alkaline Phosphatase 85 U/L (38-126) 10/14/17 06:30 Troponin I < 0.01 ng/mL 10/13/17 09:30 Total Protein 6.2 g/dL (5.8-8.3) 10/14/17 06:30 Albumin 3.3 g/dL (3.0-4.8) 10/14/17 06:30 Globulin 3.0 gm/dL 10/14/17 06:30 Albumin/Globulin Ratio 1.1 (1.1-1.8) 10/14/17 06:30 Procalcitonin 2.55 NG/ML (0.19-0.49) H 10/14/17 06:30 Venous Blood Potassium 4.4 mmol/L (3.6-5.2) 10/13/17 09:30 Urine Color Yellow (YELLOW) 10/13/17 09:30 Urine Appearance Clear (CLEAR) 10/13/17 09:30 Urine pH 6.5 (4.7-8.0) 10/13/17 09:30 Ur Specific [place] 1.010 (1.005-1.035) 10/13/17 09:30 Urine Protein Negative mg/dL (<30 mg/dL) 10/13/17 09:30 Urine Glucose (UA) Negative mg/dL (NEGATIVE) 10/13/17 09:30 Urine Ketones Negative mg/dL (NEGATIVE) 10/13/17 09:30 Urine Blood Negative (NEGATIVE) 10/13/17 09:30 Urine Nitrate Negative (NEGATIVE) 10/13/17 09:30 Urine Bilirubin Negative (NEGATIVE) 10/13/17 09:30 Urine Urobilinogen 0.2 E.U./dL (<1 E.U./dL) 10/13/17 09:30 Ur Leukocyte Esterase Negative Stevie/uL (NEGATIVE) 10/13/17 09:30 Stool Leukocytes, Qual Negative (NEGATIVE) 10/14/17 09:30 - Hospital Course Hospital Course: Pt seen and examined. I have reviewed the note of the senior medical writer and agree with it. I have discussed the assessment and plan with the resident. I have reviewed the patient's labs and medications. Pt is admitted with Colitis. He states that his abd pain is improved. He was placed on IV Abx. He was seen by GI. CT was reviewed. Will D/C home with PO Abx. Pt to f/u with GI and PMD.
[2017-10-14] MEDS ORDERED: Aspirin 325 mg EC Tablets PO SCH (10:00)
[2017-10-14] MEDS ORDERED: diltiaZEM 300 mg/24 Hours CD Cap PO SCH (10:00)
--- NOTE | 2017-10-14 10:06 | CP.PCM.PN ---
Subjective - Date & Time of Evaluation Date of Evaluation: 10/14/17 Time of Evaluation: 09:15 - Subjective Subjective: S&E at bedside, chart reviewed, had "pasty" stool, no bleeding, stool studies collected and sent. Tolerating clear liquid, abdominal pain improved. No N./V , fever or chills. Want to go home. No acute overnight events reported. Objective - Vital Signs/Intake and Output Vital Signs (last 24 hours): Temp Pulse Resp BP Pulse Ox 98.2 F 81 18 124/60 96 10/14/17 06:00 10/14/17 06:00 10/14/17 06:00 10/14/17 06:00 10/14/17 06:00 Intake and Output: 10/14/17 10/14/17 06:59 18:59 Intake Total 660 Balance 660 - Medications Medications: Current Medications Aspirin (Ecotrin) 325 mg PO DAILY [facility] Atorvastatin Calcium (Lipitor) 40 mg PO DAILY [facility] Clopidogrel Bisulfate (Plavix) 75 mg PO DAILY [facility] Diltiazem HCl (Cardizem Cd) 300 mg PO DAILY [facility] Metronidazole (Flagyl) 500 mg in 100 mls @ 100 mls/hr IVPB Q8 [facility] PRN Reason: Protocol Last Admin: 10/14/17 06:00 Dose: 100 mls/hr Ceftriaxone Sodium (Rocephin 1 Gram Ivpb) 1 gm in 100 mls @ 100 mls/hr IVPB DAILY [facility] PRN Reason: Protocol Last Admin: 10/13/17 17:07 Dose: 100 mls/hr Ramipril (Altace) 10 mg PO BID [facility] Last Admin: 10/13/17 17:45 Dose: 10 mg Timolol Maleate (Timoptic 0.5% Oph Soln) 1 drop OU BID [facility] Last Admin: 10/13/17 18:20 Dose: 1 drop - Labs Labs: 10/14/17 06:30 10/14/17 06:30 PT 11.1 SECONDS (9.4-12.5) 10/13/17 09:30 INR 0.97 (0.93-1.08) 10/13/17 09:30 APTT 27.6 Seconds (25.1-36.5) 10/13/17 09:30 - Constitutional Appears: No Acute Distress - Head Exam Head Exam: NORMOCEPHALIC - Eye Exam Eye Exam: Normal appearance. absent: Scleral icterus - ENT Exam ENT Exam: Mucous Membranes Moist - Respiratory Exam Respiratory Exam: Clear to Ausculation Bilateral, NORMAL BREATHING PATTERN. absent: Respiratory Distress - Cardiovascular Exam Cardiovascular Exam: +S1, +S2 - GI/Abdominal Exam GI & Abdominal Exam: Soft, Normal Bowel Sounds. absent: Guarding, Tenderness, Organomegaly, Rebound - Extremities Exam Extremities Exam: absent: Calf Tenderness, Pedal Edema - Neurological Exam Neurological Exam: Alert, Awake, Oriented x3 Assessment and Plan - Assessment and Plan (Free Text) Assessment: ASSESSMENT: Improved Abdominal Pain Right sided colitis, infectious, inflammatory HTN CAD s/p CABG H/O Bladder Cancer PLAN: on clear liquid on antibiotics FU stool studies discuss with patient FU outpatient office on discharge, consider elective outpt colon when colitits has resolved. Recommend on discharge continue clear liquid diet for 2 additional days then increase to low residual and slowly advance. DC home on oral antibiotics for a total of 7 days. Seen and discussed with Dr. Hayes.
[2017-10-14] MEDS: cefTRIAXone 1 gm 1 GM/100 ML BAG IVPB SCH (10:30)
[2017-10-14 10:35] VITALS: BP 124/76
== END 2017-10-14 14:04 | disposition home or self-care (01) ==
LOC: ED 08:44 → ERH 11:50 → INTOOBSV 11:50 → ERH 12:49 → 5RNO 14:05
PROVIDERS: ADMIT Internal Medicine Nephrology; ATTEND Internal Medicine Nephrology
DX: A09 Infectious gastroenteritis and colitis, unspecified (principal); E78.5 Hyperlipidemia, unspecified; H40.9 Unspecified glaucoma; I10 Essential (primary) hypertension; I25.10 Atherosclerotic heart disease of native coronary artery without angina pectoris; K57.90 Diverticulosis of intestine, part unspecified, without perforation or abscess without bleeding; R10.9 Unspecified abdominal pain; Z79.02 Long term (current) use of antithrombotics/antiplatelets; Z79.82 Long term (current) use of aspirin; Z84.1 Family history of disorders of kidney and ureter; Z85.51 Personal history of malignant neoplasm of bladder; Z87.11 Personal history of peptic ulcer disease; Z90.49 Acquired absence of other specified parts of digestive tract; Z95.1 Presence of aortocoronary bypass graft; Z95.5 Presence of coronary angioplasty implant and graft; M19.90 Unspecified osteoarthritis, unspecified site; Z88.6 Allergy status to analgesic agent; Z91.041 Radiographic dye allergy status
CPT/HCPCS: 36415; 71045; 74176; 80053; 81003; 82803; 84145; 84484; 85025; 85610; 85730; 87040; 87045; 87086; 87177; 87209; 87324; 89055; 93005; 96361; 96374; 96375; 99285; G0378; J0696; J2270; J2405; J7030; Q9966

== ENCOUNTER 2018-05-16 11:02 | Day surgery (SDC) | payer MEDICARE, OTHER | END 2018-05-16 15:00 | disposition home or self-care (01) | LOC: ENDO 15:00 | DX: K52.9 Noninfective gastroenteritis and colitis, unspecified (principal); K57.30 Diverticulosis of large intestine without perforation or abscess without bleeding; K64.1 Second degree hemorrhoids ==